=== PATIENT | male | born 1950 | race Caucasian/White ===

== ENCOUNTER → 2018-11-07 | Day surgery (SDC) | payer MEDICARE, BC ==
[2018-11-04 09:22] VITALS: BMI 36.6
[~2018-11-07] MED LIST: LACTATED RINGERS 1,000 ML IV SCH; LIDOCAINE 1% 20 ML VIAL (10MG/ML) FOR IV START INTRADERMA PRN; LIDOCAINE 1% INJ 10MG/ML (20 ML MDV) ONE; PROPOFOL 10 MG/ML 20 ML VIAL IV ONE
[2018-11-07 08:29] VITALS: TEMP 97
--- NOTE | 2018-11-07 10:20 | P.GSHP ---
History of Present Illness H&P Date: 11/07/18 Chief Complaint: Screening colonoscopy This a 68-year-old male who presents today for screening colonoscopy. His last colonoscopy was over 10 years ago. He denies any significant GI complaints. He states that his first colonoscopy was found to have polyps. Past Medical History Past Medical History: Coronary Artery Disease (CAD), Cancer, COPD, Hypertension, Sleep Apnea/CPAP/BIPAP Additional Past Medical History / Comment(s): C-PAP MACHINE, BASAL CELL SKIN CANCER, HX COLON POLYPS, STATES HE HAS AN ABDOMINAL HERNIA., "BORDERLINE DIABETES". History of Any Multi-Drug Resistant Organisms: None Reported Past Surgical History: Heart Catheterization, Heart Catheterization With Stent, Hernia Repair Additional Past Surgical History / Comment(s): RIO INGUINAL HERNIA'S., HEART CATH WITH STENT (2015 [facility]), HEART CATH SEP 2018 (NO STENTS) Past Anesthesia/Blood Transfusion Reactions: No Reported Reaction Date of Last Stent Placement:: 2015 Past Psychological History: Anxiety Smoking Status: Former smoker Past Alcohol Use History: Occasional Additional Past Alcohol Use History / Comment(s): QUIT SMOKING 2006, SMOKED 25- 30 YEARS. Past Drug Use History: None Reported - Past Family History Mother Family Medical History: No Reported History Medications and Allergies Home Medications Medication Instructions Recorded Confirmed Type LORazepam [Ativan] 1 mg PO DAILY PRN #5 tablet 04/19/16 11/07/18 Rx busPIRone HCL [Buspar] 7.5 mg PO BID #14 tab 04/19/16 11/04/18 Rx Aspirin [Adult Low Dose Aspirin EC] 81 mg PO DAILY 11/04/18 11/04/18 History Atorvastatin Calcium [Lipitor] 40 mg PO DAILY 11/04/18 11/04/18 History Hydrochlorothiazide [Hydrodiuril] 25 mg PO DAILY 11/04/18 11/04/18 History Isosorbide Mononitrate ER [Imdur] 60 mg PO DAILY 11/04/18 11/04/18 History Losartan Potassium [Cozaar] 100 mg PO DAILY 11/04/18 11/04/18 History Allergies Allergy/AdvReac Type Severity Reaction Status Date / Time No Known Allergies Allergy Verified 11/07/18 08:17 Surgical - Exam Vital Signs Temp Pulse Resp BP Pulse Ox 97.0 F L 71 17 136/78 97 11/07/18 08:28 11/07/18 08:28 11/07/18 08:28 11/07/18 08:28 11/07/18 08:28 - General well developed, well nourished, no distress - Eyes PERRL - ENT normal pinna - Neck no masses - Respiratory normal expansion - Cardiovascular Rhythm: regular - Abdomen Abdomen: soft, non tender Assessment and Plan Assessment: History of colon polyps. We'll perform screening colonoscopy.
--- NOTE | 2018-11-07 10:28 | P.OP ---
Date of Procedure: 11/07/18 Preoperative Diagnosis: Screening colonoscopy Postoperative Diagnosis: Diverticulosis Procedure(s) Performed: Colonoscopy Anesthesia: MAC Surgeon: Immanuel Donaldson Pathology: none sent Condition: stable Disposition: PACU Description of Procedure: The patient's placed on the endoscopy table in the lateral position. He received IV sedation. Digital rectal exam was performed which revealed no abnormalities. The flexible colonoscope was then placed patient anus passed throughout the entire colon. The ileocecal valve was visually is. The cecum, ascending and transverse colon appeared normal. In the descending; there is moderate diverticular changes. There is no evidence of diverticulitis. The sc ope was then brought back the rectum and this appeared normal. Scope was withdrawn for patient.
[2018-11-07 11:28] VITALS: BP 120/76; PULSE 69; RESP 17
== END | disposition home or self-care (01) ==
LOC: ORWHC2ENDO 08:09
PROVIDERS: ATTEND Surgery
DX: Z12.11 Encounter for screening for malignant neoplasm of colon (principal); K57.30 Diverticulosis of large intestine without perforation or abscess without bleeding; I25.10 Atherosclerotic heart disease of native coronary artery without angina pectoris; J44.9 Chronic obstructive pulmonary disease, unspecified; G47.33 Obstructive sleep apnea (adult) (pediatric); I10 Essential (primary) hypertension; Z99.89 Dependence on other enabling machines and devices; F41.9 Anxiety disorder, unspecified; Z87.891 Personal history of nicotine dependence; Z95.5 Presence of coronary angioplasty implant and graft; Z79.82 Long term (current) use of aspirin; Z79.899 Other long term (current) drug therapy; Z86.010 Personal history of colon polyps; Z85.828 Personal history of other malignant neoplasm of skin; R73.03 Prediabetes
CPT/HCPCS: J2001; J2704; G0105

== ENCOUNTER → 2023-06-07 | Outpatient (CLI) | payer MEDICARE ==
[2023-06-07 12:23] LABS: African American GFR (CKD) >90 (>60 ml/min/1.73 sqM); Blood Urea Nitrogen 23 mg/dL (9-20); Non-African American GFR(CKD) >90 (>60 ml/min/1.73 sqM)
--- NOTE | 2023-06-07 13:02 | CT ---
EXAMINATION TYPE: CT chest w con DATE OF EXAM: 06/07/2023 COMPARISON: None HISTORY: SOLITARY PULMONARY NODULE 10+ [address] CT DLP: 485.70 mGycm Automated exposure control for dose reduction was used. TECHNIQUE: CT scan of the chest is performed with IV Contrast, patient injected with 100ML mL of Isovue 300. FL P Images are created on CT scanner and reviewed. 3D reconstructed images are created on an [employer] workstation and reviewed. FINDINGS: LUNGS: The lungs are grossly clear, there is no concerning parenchymal consolidation identified. Th ere is no pleural effusion or pneumothorax seen. The tracheobronchial tree is patent. There are a fe w scattered 3 mm or less bilateral pulmonary nodules. Largest measuring 3 mm in the right middle lobe MEDIASTINUM: There are no greater than 1 cm hilar or mediastinal lymph nodes. No pericardial effusi on is seen. Coronary artery calcification. Atherosclerotic change aorta. OTHER: Moderate sized hiatal hernia. There is a aggressive appearing mass within the left kidney rand suring 6.6 cm suspicious for renal cell carcinoma. There is a 4 cm complex right adrenal mass represe nting a primary adrenal lesion or metastasis slight multilevel severe degenerative disc disease. Repo rt called to referring clinician 12:59 PM 06/07/2023. IMPRESSION: 1. Complex appearing 6.6 cm left kidney mass suspicious for renal cell carcinoma. 2. Complex right adrenal lesion measuring 4 cm. Metastases in the differential diagnosis. 3. There are multiple sub-5 mm right-sided pulmonary nodules too small to characterize
== END | disposition home or self-care (01) ==
LOC: RADCTMAIN 11:10
PROVIDERS: ATTEND Internal Medicine Critical Care Medicine
DX: R91.1 Solitary pulmonary nodule (principal); N28.89 Other specified disorders of kidney and ureter; R91.8 Other nonspecific abnormal finding of lung field; E27.8 Other specified disorders of adrenal gland
CPT/HCPCS: 82565; 84520; 71260; 36415; Q9967

== ENCOUNTER → 2023-06-24 | Outpatient (CLI) | payer MEDICARE ==
[2023-06-24 09:58] LABS: African American GFR (CKD) >90 (>60 ml/min/1.73 sqM); Blood Urea Nitrogen 20 mg/dL (9-20); Non-African American GFR(CKD) 86 (>60 ml/min/1.73 sqM)
--- NOTE | 2023-06-24 11:53 | CT ---
EXAMINATION TYPE: CT abdomen wo/w con CT DLP: 2284.80 mGycm, Automated exposure control for dose reduction was used. 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 Coronal and sagittal reformats were performed. FINDINGS: LOWER CHEST: Visualized lungs are clear. Coronary artery calcifications. ABDOMEN LIVER: Unremarkable GALLBLADDER AND BILE DUCTS: Unremarkable. PANCREAS: Unremarkable. SPLEEN: Unremarkable. ADRENAL GLANDS: Unremarkable left adrenal gland. Right adrenal gland lesion measuring 3.8 cm. Demonst rates a Hounsfield unit of 43 on noncontrast imaging. Demonstrates a Hounsfield unit of 46 on portal venous phase. Demonstrates a Hounsfield unit of 49 on the delayed phase. KIDNEYS AND URETERS: No evidence of hydronephrosis or renal calculus. Heterogenous enhancing 5.2 x 6. 8 cm mass within the superior pole of the left kidney (series 10, image 31). No evidence for IVC or r enal vein involvement. Contrast is demonstrated within both collecting systems on the delayed phase. STOMACH AND BOWEL: Small hiatal hernia, duodenum is unremarkable.Enteric contrast reaches the mid sma ll bowel. The appendix is within normal limits. No evidence of bowel obstruction. PERITONEUM: No evidence of pneumoperitoneum or free fluid. VASCULATURE: Mild atherosclerotic calcifications are present throughout the abdominal aorta and its b ranches. No evidence of aortic aneurysm. MUSCULOSKELETAL: No acute osseous abnormalities. Multilevel prominent Schmorl's nodes. LYMPH NODES: No gross evidence for lymphadenopathy. SOFT TISSUE/ABDOMINAL WALL: Tiny fat filled umbilical hernia. IMPRESSION: 1. Left renal 6.8 cm heterogenous enhancing mass concerning for renal cell carcinoma until proven ot herwise. Urology consult is recommended. 2. Right adrenal gland lesion measuring up to 3.8 without definitive enhancement on multiphase imagin g. Favored to represent a benign adenoma. Metastasis not entirely excluded. Consider further evaluati on with PET/CT.
== END | disposition home or self-care (01) ==
LOC: RADCTMAIN 08:53
PROVIDERS: ATTEND Urology
DX: D41.01 Neoplasm of uncertain behavior of right kidney (principal); N28.89 Other specified disorders of kidney and ureter
CPT/HCPCS: 82565; 84520; 74170; 36415; Q9967

== ENCOUNTER → 2023-07-27 | Outpatient (CLI) | payer MEDICARE ==
[2023-07-27 15:59] LABS: Calcium 9.8 mg/dL (8.7-10.3); Chloride 105 mmol/L (96-109); Phosphorus 3.7 mg/dL (2.4-5.1)
[2023-07-27 16:00] LABS: Carbon Dioxide 25.4 mmol/L (21.6-31.8)
== END | disposition home or self-care (01) ==
LOC: LABWHC1 09:56
PROVIDERS: ATTEND Surgery
DX: D44.12 Neoplasm of uncertain behavior of left adrenal gland (principal)
CPT/HCPCS: 36415; 82088; 82310; 82374; 82435; 82565; 83835; 83970; 84100; 84244; 84550

== ENCOUNTER → 2023-07-30 | Outpatient (CLI) | payer MEDICARE ==
[2023-07-31 08:48] LABS: Calcium 24 Hour,Urine 379.2 mg/24Hr (100.0-300.0); Sodium 24 Hour,Urine 437 mmol/24Hr (15-250); Uric Acid 24 Hour,Urine 1.43 g/24hr (0.25-0.75)
== END | disposition home or self-care (01) ==
LOC: LABWHC1 13:48
PROVIDERS: ATTEND Surgery
DX: D44.12 Neoplasm of uncertain behavior of left adrenal gland (principal)
CPT/HCPCS: 81050; 82340; 82530; 84300; 84560